=== PATIENT | female | born 1935 | race Caucasian/White ===

== ENCOUNTER 2017-06-30 14:13 | Inpatient (IN) | payer OTHER ==
[~2017-06-30] VITALS: Ht 167.6 cm; Wt 48.5 kg
[2017-06-30 14:15] VITALS: BP_SYST 116
[2017-06-30 15:21] LABS: BASOPHILS % (AUTO) 0.6 % (0.0-2.0); EOSINOPHILS # (AUTO) 0.1 K/uL (0.0-0.4); EOSINOPHILS % (AUTO) 1.1 % (0.0-4.0); HEMATOCRIT 41.6 % (36-48); HEMOGLOBIN 13.5 g/dL (12.0-16.0); LYMPHOCYTES # (AUTO) 1.7 K/uL (1.0-5.5); LYMPHOCYTES % (AUTO) 21.4 % (20.5-51.5); MEAN CORPUSCULAR HEMOGLOBIN 30 pg (27-31); MEAN CORPUSCULAR HGB CONC 33 % (32-36); MEAN CORPUSCULAR VOLUME 92 fL (79.0-98.0); MONOCYTES # (AUTO) 0.8 K/uL (0.0-1.0); MONOCYTES % (AUTO) 9.8 % (1.7-9.3); NEUTROPHILS # (AUTO) 5.3 K/uL (1.8-7.7); NEUTROPHILS % (AUTO) 67.1 % (40.0-70.0); PLATELET COUNT (AUTO) 340 K/uL (130-430); RED BLOOD CELL COUNT(AUTO) 4.51 MIL/uL (4.2-6.2); RED CELL DISTRIBUTION WIDTH 13.4 % (9.0-15.0); WHITE BLOOD COUNT (AUTO) 7.9 K/uL (4.8-10.8)
[2017-06-30 15:41] LABS: ANION GAP 10 (5-15); CALCIUM 9.7 mg/dL (8.4-11.0); CHLORIDE 109 mmol/L (98-107); CREATININE 1.05 mg/dL (0.55-1.30); GLUCOSE 84 mg/dL (70-99); POTASSIUM 3.4 mmol/L (3.5-5.1); SODIUM SERUM 142 mmol/L (136-145); UREA NITROGEN, BLOOD 13 mg/dL (8-21)
[2017-06-30 15:55] LABS: ALANINE AMINOTRANSFERASE 33 U/L (12-78); ALBUMIN 3.3 g/dL (3.4-4.8); ASPARTATE AMINOTRANSFERASE 30 U/L (10-37); TOTAL BILIRUBIN 0.6 mg/dL (0.0-1.0)
[2017-06-30 15:58] LABS: ALCOHOL, BLOOD < 3 mg/dL (<10)
[2017-06-30 16:23] LABS: PROTHROMBIN TIME 10.4 SECS (9.5-12.5)
[2017-06-30 16:24] LABS: FREE T4 (FREE THYROXINE) 1.5 ng/dl (0.8-1.5)
[2017-06-30 17:52] VITALS: BP_SYST 131
[2017-06-30 19:05] VITALS: BP_SYST 142
[2017-06-30] MEDS ORDERED: POTASSIUM CHLORIDE 20 MEQ TAB.PRT.SR PO ONE (20:30)
[2017-06-30] MEDS ORDERED: LR 1,000 ML IV SCH (20:30)
[2017-06-30] MEDS ORDERED: ACETAMINOPHEN 325 MG TABLET PO PRN (20:30)
[2017-06-30] MEDS ORDERED: LORazepam 2 MG/ML VIAL IVP PRN (20:30)
[2017-06-30] MEDS ORDERED: ONDANSETRON HCL 4 MG/2 ML VIAL IVP PRN (20:30)
[2017-07-01] VITALS (9 sets, daily range): BP systolic 107–164
[2017-07-01 06:20] LABS: BILIRUBIN,URINE NEGATIVE (NEGATIVE); BLOOD, URINE 1+ (NEGATIVE); CLARITY/URINE CLEAR (CLEAR); COLOR,URINE YELLOW (YELLOW); GLUCOSE,URINE NEGATIVE (NEGATIVE); KETONES,URINE NEGATIVE (NEGATIVE); LEUKOCYTE ESTERASE ,URINE TRACE (NEGATIVE); NITRITE, URINE POSITIVE (NEGATIVE); PH,URINE 7.5 (5.0-8.0); PROTEIN URINE TRACE (NEGATIVE)
[2017-07-01 06:28] LABS: BACTERIA,URINE MANY /HPF (None Seen); RBC,URINE 0-3 /HPF (0-3)
[2017-07-01 06:33] LABS: BARBITURATE, URINE NEGATIVE (NEG <=200); BENZODIAZEPINE, URINE NEGATIVE (NEG <=150); CANNABINOID, URINE NEGATIVE (NEG <=50); COCAINE, URINE NEGATIVE (NEG <=150); METHAMPHETAMINES SCREEN,URINE NEGATIVE (NEG <=500); OPIATE, URINE NEGATIVE (NEG <=100); PHENCYCLIDINE SCREEN,URINE NEGATIVE (NEG <=25); UR TRICYCLIC ANTIDEPRESSANTS NEGATIVE (NEG <=300); URINE AMPHETAMINE NEGATIVE (NEG <=500); URINE METHADONE NEGATIVE (NEG <=200); URINE OXYCODONE SCREEN NEGATIVE (NEG <=100); URINE PROPOXYPHENE SCREEN NEGATIVE (NEG <=300)
[2017-07-01 07:45] LABS: BASOPHILS # (AUTO) 0.1 K/uL (0.0-0.2); EOSINOPHILS # (AUTO) 0.2 K/uL (0.0-0.4); MEAN CORPUSCULAR HEMOGLOBIN 31 pg (27-31)
[2017-07-01 08:02] LABS: BASOPHILS % (AUTO) 0.7 % (0.0-2.0); EOSINOPHILS % (AUTO) 2.2 % (0.0-4.0); HEMATOCRIT 38.7 % (36-48); HEMOGLOBIN 13.3 g/dL (12.0-16.0); LYMPHOCYTES % (AUTO) 25.7 % (20.5-51.5); MEAN CORPUSCULAR HGB CONC 34 % (32-36); MEAN CORPUSCULAR VOLUME 91 fL (79.0-98.0); MONOCYTES # (AUTO) 0.8 K/uL (0.0-1.0); MONOCYTES % (AUTO) 10.5 % (1.7-9.3); NEUTROPHILS # (AUTO) 4.8 K/uL (1.8-7.7); NEUTROPHILS % (AUTO) 60.9 % (40.0-70.0); PLATELET COUNT (AUTO) 296 K/uL (130-430); RED BLOOD CELL COUNT(AUTO) 4.26 MIL/uL (4.2-6.2); RED CELL DISTRIBUTION WIDTH 13.2 % (9.0-15.0); WHITE BLOOD COUNT (AUTO) 7.9 K/uL (4.8-10.8)
[2017-07-01 08:18] LABS: ALANINE AMINOTRANSFERASE 31 U/L (12-78); ANION GAP 5 (5-15); ASPARTATE AMINOTRANSFERASE 26 U/L (10-37); CALCIUM 9.4 mg/dL (8.4-11.0); CHLORIDE 116 mmol/L (98-107); CREATININE 1.11 mg/dL (0.55-1.30); GLUCOSE 81 mg/dL (70-99); POTASSIUM 4.8 mmol/L (3.5-5.1); SODIUM SERUM 147 mmol/L (136-145); TOTAL BILIRUBIN 0.6 mg/dL (0.0-1.0); UREA NITROGEN, BLOOD 11 mg/dL (8-21)
[2017-07-01] MEDS ORDERED: LACTOBACILLUS RHAMNOSUS GG 1 CAP CAPSULE PO ONE (14:30)
[2017-07-01] MEDS ORDERED: CIPROFLOXACIN HCL 500 MG TABLET PO ONE (14:30)
[2017-07-01] MEDS: cefTRIAXone 1 GM in D5W 50 ML IV SCH (16:55)
[2017-07-01] MEDS ORDERED: FURO-149 PO (19:11)
[2017-07-01] MEDS ORDERED: RISP0.5T2 PO (19:11)
[2017-07-01] MEDS ORDERED: VENL75CA PO (19:11)
[2017-07-01] MEDS ORDERED: METO25TA6 PO (19:11)
[2017-07-01] MEDS ORDERED: DONE10TA44 PO (19:11)
[2017-07-01] MEDS ORDERED: FERR-57 PO (19:11)
[2017-07-01] MEDS ORDERED: OMEP20CA10 PO (19:11)
[2017-07-01] MEDS: LACTOBACILLUS RHAMNOSUS GG 1 CAP CAPSULE PO SCH (21:21)
[2017-07-01] MEDS: CIPROFLOXACIN HCL 500 MG TABLET PO SCH (21:22)
[2017-07-02 03:54] VITALS: BP_SYST 140
[2017-07-02 07:47] LABS: ANION GAP 5 (5-15); CALCIUM 9.4 mg/dL (8.4-11.0); CHLORIDE 110 mmol/L (98-107); CREATININE 1.01 mg/dL (0.55-1.30); GLUCOSE 87 mg/dL (70-99); POTASSIUM 3.7 mmol/L (3.5-5.1); SODIUM SERUM 142 mmol/L (136-145); UREA NITROGEN, BLOOD 12 mg/dL (8-21)
[2017-07-02 08:10] VITALS: BP_SYST 123
[2017-07-02] MEDS: CIPROFLOXACIN HCL 500 MG TABLET PO SCH ×2 (09:04→20:50)
[2017-07-02] MEDS: LACTOBACILLUS RHAMNOSUS GG 1 CAP CAPSULE PO SCH ×2 (09:05→20:50)
[2017-07-02 12:24] VITALS: BP_SYST 153
[2017-07-02] MEDS: cefTRIAXone 1 GM in D5W 50 ML IV SCH (13:06)
[2017-07-02 15:55] VITALS: BP_SYST 117
[2017-07-02 19:00] VITALS: BP_SYST 128
[2017-07-02 20:00] VITALS: BP_SYST 128
[2017-07-03 04:00] VITALS: BP_SYST 130
[2017-07-03 08:00] VITALS: BP_SYST 123
[2017-07-03] MEDS: LACTOBACILLUS RHAMNOSUS GG 1 CAP CAPSULE PO SCH (09:39)
[2017-07-03] MEDS: CIPROFLOXACIN HCL 500 MG TABLET PO SCH (09:39)
[2017-07-03 12:31] VITALS: BP_SYST 138
[2017-07-03] MEDS ORDERED: CYANOCOBALAMIN 1000 MCG/ML VIAL IM ONE (14:15)
[2017-07-03] MEDS: cefTRIAXone 1 GM in D5W 50 ML IV SCH (14:22)
[2017-07-03 16:05] VITALS: BP_SYST 130
[2017-07-03 17:28] VITALS: BP_SYST 131
[2017-07-03] MEDS ORDERED: QUEtiapine FUMARATE 25 MG TABLET PO SCH (18:00)
[2017-07-03] MEDS ORDERED: CIPR-172 PO (18:23)
[2017-07-04] MEDS ORDERED: MULTIVITS,CA,MINERALS/IRON/FA 1 TABLET PO SCH (09:00)
[2017-07-04] MEDS ORDERED: CYANOCOBALAMIN 1000 mCg TABLET PO SCH (09:00)
== END 2017-07-03 19:35 | DRG 89 ==
LOC: SED 14:13 → STU 16:45 → SMU 07-01 12:34
PROVIDERS: ADMIT Internal Medicine; ATTEND Internal Medicine
DX: S06.0X9A Concussion with loss of consciousness of unspecified duration, initial encounter (principal); N39.0 Urinary tract infection, site not specified; F03.90 Unspecified dementia, unspecified severity, without behavioral disturbance, psychotic disturbance, mood disturbance, and anxiety; W07.XXXA Fall from chair, initial encounter; R27.0 Ataxia, unspecified; S09.8XXA Other specified injuries of head, initial encounter; E87.6 Hypokalemia; Y99.8 Other external cause status; Y92.89 Other specified places as the place of occurrence of the external cause; Y93.89 Activity, other specified; Z91.018 Allergy to other foods
CPT/HCPCS: 36415; 70450-TC; 71010; 72125-TC; 74000-TC; 80048; 80053; 80307; 81000-TC; 82140-TC; 83605; 83880; 84439; 84484; 85025; 85610-TC; 87040-TC; 87086; 87186-TC; 93005; 97116-GP; 99285; G0482; J0696; J2060; J3420; J7050; J7060; J7120

== ENCOUNTER 2017-07-13 11:43 | Emergency (ER) | payer OTHER ==
[~2017-07-13] VITALS: Ht 162.6 cm; Wt 54.4 kg
[~2017-07-13 11:43] MED LIST: CIPR-172 PO; DONE10TA44 PO; FERR-57 PO; FURO-149 PO; METO25TA6 PO; OMEP20CA10 PO; RISP0.5T2 PO; VENL75CA PO
[2017-07-13 11:46] VITALS: BP_SYST 132
[2017-07-13] MEDS ORDERED: QUET50TA13 PO (12:02)
[2017-07-13] MEDS ORDERED: MULT240L PO (12:02)
[2017-07-13] MEDS ORDERED: CHOL100038 PO (12:02)
[2017-07-13] MEDS ORDERED: SACC250C3 PO (12:02)
[2017-07-13] MEDS ORDERED: MEMA10TA12 PO (12:02)
[2017-07-13] MEDS ORDERED: MV-M1TAB2 PO (12:02)
[2017-07-13] MEDS ORDERED: CYAN100067 PO (12:02)
[2017-07-13] MEDS ORDERED: NACL 0.9% 1,000 ML IV SCH (12:15)
[2017-07-13 12:54] LABS: ANION GAP 7 (5-15); BASOPHILS # (AUTO) 0.1 K/uL (0.0-0.2); BASOPHILS % (AUTO) 0.8 % (0.0-2.0); CALCIUM 9.1 mg/dL (8.4-11.0); CHLORIDE 108 mmol/L (98-107); EOSINOPHILS # (AUTO) 0.2 K/uL (0.0-0.4); EOSINOPHILS % (AUTO) 1.7 % (0.0-4.0); GLUCOSE 86 mg/dL (70-99); HEMOGLOBIN 13.9 g/dL (12.0-16.0); LYMPHOCYTES # (AUTO) 1.5 K/uL (1.0-5.5); LYMPHOCYTES % (AUTO) 15.1 % (20.5-51.5); MEAN CORPUSCULAR HEMOGLOBIN 31 pg (27-31); MEAN CORPUSCULAR HGB CONC 34 % (32-36); MEAN CORPUSCULAR VOLUME 92 fL (79.0-98.0); MONOCYTES # (AUTO) 0.8 K/uL (0.0-1.0); MONOCYTES % (AUTO) 7.6 % (1.7-9.3); NEUTROPHILS # (AUTO) 7.6 K/uL (1.8-7.7); NEUTROPHILS % (AUTO) 74.8 % (40.0-70.0); PLATELET COUNT (AUTO) 358 K/uL (130-430); POTASSIUM 3.9 mmol/L (3.5-5.1); RED BLOOD CELL COUNT(AUTO) 4.47 MIL/uL (4.2-6.2); RED CELL DISTRIBUTION WIDTH 13.3 % (9.0-15.0); SODIUM SERUM 141 mmol/L (136-145); UREA NITROGEN, BLOOD 18 mg/dL (8-21); WHITE BLOOD COUNT (AUTO) 10.2 K/uL (4.8-10.8)
[2017-07-13 12:59] LABS: ALANINE AMINOTRANSFERASE 41 U/L (12-78); ALBUMIN 2.8 g/dL (3.4-4.8); ASPARTATE AMINOTRANSFERASE 30 U/L (10-37); TOTAL BILIRUBIN 0.4 mg/dL (0.0-1.0)
[2017-07-13 13:13] LABS: BILIRUBIN,URINE NEGATIVE (NEGATIVE); BLOOD, URINE NEGATIVE (NEGATIVE); CLARITY/URINE CLEAR (CLEAR); COLOR,URINE YELLOW (YELLOW); GLUCOSE,URINE NEGATIVE (NEGATIVE); KETONES,URINE NEGATIVE (NEGATIVE); LEUKOCYTE ESTERASE ,URINE NEGATIVE (NEGATIVE); NITRITE, URINE NEGATIVE (NEGATIVE); PROTEIN URINE NEGATIVE (NEGATIVE); UROBILINOGEN,URINE 0.2 (0.2-1.0)
[2017-07-13 16:20] VITALS: BP_SYST 131
== END 2017-07-13 16:20 | disposition home or self-care (01) ==
LOC: SED 11:43
DX: F03.90 Unspecified dementia, unspecified severity, without behavioral disturbance, psychotic disturbance, mood disturbance, and anxiety (principal); Z91.018 Allergy to other foods; Z79.899 Other long term (current) drug therapy
CPT/HCPCS: 36415; 71010; 80053; 81003; 83605; 83880; 84484; 85025; 87040; 93005; 96360; 99285; J7030